=== PATIENT | female | born 1990 | race American Indian/Alaskan Native ===

== ENCOUNTER 2017-03-21 23:14 | Emergency (ER) | payer OTHER ==
[2017-03-21 23:41] VITALS: BP 119/81
--- NOTE | 2017-03-22 03:12 | XRay Report ---
FINAL REPORT EXAM: XR FOOT 2V RT HISTORY: right foot pain from fall TECHNIQUE: AP and lateral views of the right foot were obtained. FINDINGS: There is no evidence of fracture or dislocation. There is soft tissue fullness overlying the dorsal aspect of the metatarsals. IMPRESSION: Soft tissue fullness overlying the dorsal aspect of the metatarsals. No evidence of fracture.
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
[2017-03-22] MEDS ORDERED: ULTRAM PO ONE (04:53)
== END 2017-03-22 05:02 | disposition home or self-care (01) ==
LOC: ED 23:14
DX: L02.611 Cutaneous abscess of right foot (principal); F32.9 Major depressive disorder, single episode, unspecified; F17.200 Nicotine dependence, unspecified, uncomplicated
CPT/HCPCS: 87076; 87116; 87186; 99283

== ENCOUNTER 2018-06-06 10:40 | Emergency (ER) | payer OTHER ==
--- NOTE | 2018-06-06 11:18 | Emergency Department Report ---
Blank Doc - Documentation Documentation: This is a 27 y.o. female that presents with spotting during . Patient is 6 weeks . She had a confirmed with a clinic but is not followed by [facility]. She also complains of left flank pain that started this morning. Ordered: Labs Fast track for further evaluation.
[2018-06-06 11:53] LABS: Basophils % (Auto) 0.2 % (0.0-1.8); Eosinophils % (Auto) 0.3 % (0.0-4.3); Hematocrit 39.4 % (30.3-42.9); Hemoglobin 13.2 gm/dl (10.1-14.3); Lymphocytes # (Auto) 2.8 K/mm3 (1.2-5.4); Lymphocytes % (Auto) 27.3 % (13.4-35.0); Mean Corpuscular HGB Conc 34 % (30-34); Mean Corpuscular Volume 94 fl (79-97); Monocytes # (Auto) 0.6 K/mm3 (0.0-0.8); Monocytes % (Auto) 5.5 % (0.0-7.3); Platelet Count 193 K/mm3 (140-440); Red Blood Count 4.21 M/mm3 (3.65-5.03); Red Cell Distribution Width 12.3 % (13.2-15.2)
[2018-06-06 12:39] LABS: Bilirubin,Urine NEG (Negative); Blood,Urine NEG (Negative); Color,Urine Straw (Yellow); Mucus,Urine FEW /HPF; Protein,Urine <15 mg/dL mg/dL (Negative); Urobilinogen,Urine < 2.0 mg/dL (<2.0)
--- NOTE | 2018-06-06 14:42 | Emergency Department Report ---
ED HPI - General Chief complaint: Vaginal Bleeding Stated complaint: PREG/LOWER ABD PAIN/BACK Time Seen by Provider: 06/06/18 11:14 Source: patient Mode of arrival: Ambulatory Limitations: No Limitations - History of Present Illness Initial comments: 27-year-old female, 6 weeks , presents to ED with complaint of vaginal spotting since this morning. Also reports lower abdominal cramping radiating to back. Patient currently has [facility]. MD Complaint: abdominal pain, vaginal bleeding -: This morning Radiation: back Severity: mild Quality: cramping Consistency: constant Improves with: none Worsens with: none Associated symptoms: vaginal bleeding Vaginal bleeding: light :: Yes Number of weeks : 6 Pre- care: none - Related Data : 1 Para: 0 Previous Rx's Medication Instructions Recorded Last Taken Type Dicyclomine [Bentyl] 20 mg PO QID #7 tablet 07/30/14 Unknown Rx Promethazine [Phenergan] 25 mg PO Q6H PRN #10 tablet 07/30/14 Unknown Rx Sulfamethoxazole/Trimethoprim 1 each PO BID 10 Days #20 tablet 03/22/17 Unknown Rx [Bactrim DS TAB] traMADol [Ultram 50 MG tab] 50 mg PO Q6HR PRN 7 Days #28 tablet 03/22/17 Unknown Rx Allergies Allergy/AdvReac Type Severity Reaction Status Date / Time No Known Allergies Allergy Unverified 07/30/14 11:18 ED Review of Systems ROS: Stated complaint: PREG/LOWER ABD PAIN/BACK Other details as noted in HPI Comment: All other systems reviewed and negative Gastrointestinal: abdominal pain Genitourinary: other (reports vaginal spotting) ED Past Medical Hx - Past Medical History Previous Medical History?: Yes Hx Psychiatric Treatment: Yes (depression) - Surgical History Past Surgical History?: No - Social History Smoking Status: Former Smoker Substance Use Type: None - Medications Home Medications: Home Medications Medication Instructions Recorded Confirmed Last Taken Type Dicyclomine [Bentyl] 20 mg PO QID #7 tablet 07/30/14 Unknown Rx Promethazine [Phenergan] 25 mg PO Q6H PRN #10 tablet 07/30/14 Unknown Rx Sulfamethoxazole/Trimethoprim 1 each PO BID 10 Days #20 tablet 03/22/17 Unknown Rx [Bactrim DS TAB] traMADol [Ultram 50 MG tab] 50 mg PO Q6HR PRN 7 Days #28 tablet 03/22/17 Unknown Rx ED Physical Exam - General Limitations: No Limitations General appearance: alert, in no apparent distress - Head Head exam: Present: atraumatic, normocephalic - Eye Eye exam: Present: normal appearance - ENT ENT exam: Present: mucous membranes moist - Neck Neck exam: Present: normal inspection - Respiratory Respiratory exam: Present: normal lung sounds bilaterally. Absent: respiratory distress - Cardiovascular Cardiovascular Exam: Present: regular rate, normal rhythm - GI/Abdominal GI/Abdominal exam: Present: soft, tenderness (mild suprapubic). Absent: distended - Extremities Exam Extremities exam: Present: normal inspection - Neurological Exam Neurological exam: Present: alert, oriented X3 - Psychiatric Psychiatric exam: Present: normal affect, normal mood - Skin Skin exam: Present: warm, dry, intact, normal color ED Course Vital Signs 06/06/18 11:11 Temperature 98.4 F Pulse Rate 73 Respiratory 16 Rate Blood Pressure 114/63 [Right] O2 Sat by Pulse 100 Oximetry ED Medical Decision Making - Lab Data Result diagrams: 06/06/18 11:33 - Radiology Data Radiology results: report reviewed, image reviewed - Medical Decision Making US shows IUP w/ HR 112. Explained to patient threatened miscarriage. Return precautions given. Outpatient follow-up advised. - Differential Diagnosis complete AB, incomplete AB, threatened AB Critical care attestation.: If time is entered above; I have spent that time in minutes in the direct care of this critically ill patient, excluding procedure time. ED Disposition Clinical Impression: Threatened miscarriage Disposition: DC-01 TO HOME OR SELFCARE Is pt being admited?: No Condition: Stable Additional Instructions: Your hormone level today is 93,[phone]. Referrals: [facility] [Provider Group] - 3-5 Days [place] HO[facility] JOHNSTON MD [Primary Care Provider] - 3-5 Days Time of Disposition: 15:26
--- NOTE | 2018-06-06 15:22 | Ultrasound Report ---
ULTRASOUND OB LESS THAN 14 WEEKS FETUS ULTRASOUND OB TRANSVAGINAL History: Vaginal bleeding. Technique: Transabdominal and transvaginal ultrasound imaging. Findings: The uterus is anteverted. The uterus measures 9 x 5 x 6 cm. No uterine mass. Normal cervix. An intrauterine gestational sac containing a small pole and yolk sac is identified. Heart rate measures 112 beats per minute. [place]-rump length measures 4.9 mm which correlates with a six-week two-day . A small subchorionic hemorrhage is identified along the inferior border of the gestational sac. The ovaries are normal size, contour and echotexture. No pelvic fluid collection. IMPRESSION: Viable, single intrauterine as described. Small subchorionic hemorrhage.
[2018-06-06 15:40] VITALS: BP 112/60
== END 2018-06-06 15:38 | disposition home or self-care (01) ==
LOC: ED 10:40
DX: O20.0 Threatened abortion (principal); Z3A.01 Less than 8 weeks gestation of pregnancy; Z87.891 Personal history of nicotine dependence
CPT/HCPCS: 36415; 76801; 76817; 81001; 84702; 85025; 86850; 86900; 86901

== ENCOUNTER 2019-05-06 18:38 | Emergency (ER) | payer MEDICAID, OTHER ==
[2019-05-06 19:02] VITALS: BP 116/77
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
--- NOTE | 2019-05-06 23:18 | XRay Report ---
RIGHT HAND 3 VIEWS [id number] INDICATION: swelling and pain to 4th 5th metcarpal area COMPARISON: None available. FINDINGS: Negative study Signer Name: Randall Sanders MD Signed: 05/06/2019 11:14 PM Workstation Name: [id number]
== END 2019-05-07 00:10 | disposition home or self-care (01) ==
LOC: ED 18:38
DX: S60.211A Contusion of right wrist, initial encounter (principal); F32.9 Major depressive disorder, single episode, unspecified; Z79.899 Other long term (current) drug therapy; X58.XXXA Exposure to other specified factors, initial encounter; Y93.89 Activity, other specified; Y92.89 Other specified places as the place of occurrence of the external cause; Y99.8 Other external cause status